=== PATIENT | female | born 1955 | race Caucasian/White ===

== ENCOUNTER 2018-07-19 08:31 | Observation (INO) | payer BC, OTHER ==
[2018-07-19] MEDS: GABAPENTIN 300 MG CAP PO ×2 (09:13→20:42)
[2018-07-19] MEDS: DEXAMETHASONE 1 MG TAB PO (09:14)
[2018-07-19] MEDS: TRANEXAMIC ACID 1GM/100ML(PMX) 100 ML IVPB (09:30)
[2018-07-19] MEDS: CEFAZOLIN 2 GM/50 ML (PMX) 50 ML IVPB (09:30)
[2018-07-19] MEDS ORDERED: SUCCINYLCHOLINE CHLORIDE 100 MG/5 ML SYG IV (10:55)
[2018-07-19] MEDS ORDERED: ROCURONIUM 50 MG INJ (10:55)
[2018-07-19] MEDS ORDERED: LIDOCAINE 2% (SDV) 5 ML INJ (10:55)
[2018-07-19] MEDS ORDERED: PROPOFOL 20 ML (10:55)
[2018-07-19] MEDS ORDERED: MIDAZOLAM 1 MG/ML 2 ML INJ (10:55)
[2018-07-19] MEDS ORDERED: DIPHENHYDRAMINE 50 MG INJ IV ×2 (11:00→12:00)
[2018-07-19] MEDS ORDERED: FENTAnyl 50 MCG/ML VIAL IV (11:00)
[2018-07-19] MEDS ORDERED: MEPERIDINE 25 MG INJ IV (11:00)
[2018-07-19] MEDS ORDERED: PROCHLORPERAZINE 10 MG INJ IV (11:00)
[2018-07-19] MEDS ORDERED: SEVOFLURANE 15 MIN (11:00)
[2018-07-19] MEDS: SOD CHLORIDE 0.9% 100 ML, TRANEXAMIC ACID 3,000 MG IRR (11:00)
[2018-07-19] MEDS ORDERED: HYDROmorphONE 1 MG/5 ML IV SYRINGE IV (11:00)
[2018-07-19] MEDS: TRANEXAMIC ACID 1GM/100ML(PMX) 100 ML (11:07)
[2018-07-19] MEDS ORDERED: FAMOTIDINE 20 MG INJ (11:18)
[2018-07-19] MEDS ORDERED: DEXAMETHASONE 4 MG/ML 5 ML INJ (11:18)
[2018-07-19] MEDS ORDERED: FENTAnyl 50 MCG/ML VIAL (11:18)
[2018-07-19] MEDS ORDERED: ONDANSETRON 4 MG INJ (11:18)
[2018-07-19] MEDS ORDERED: CEFAZOLIN 1 GM INJ (11:21)
[2018-07-19] MEDS: CA CHLORIDE 10% 10 ML SYRINGE (11:41)
[2018-07-19] MEDS: POLYMYXIN/BACITRACIN 1L IRRIG IRR (11:41)
[2018-07-19] MEDS: BUPIVACAINE 0.5% (SDV) 30 ML, morphine SULFATE (PF) 8 MG, EPINEPHrine 0.3 MG, KETOROLAC... IRR (11:41)
[2018-07-19] MEDS: THROMBIN 20,000 UNIT VIAL (11:41)
[2018-07-19] MEDS: LACTATED RINGER'S 1,000 ML IV ×4 (11:58→21:40)
[2018-07-19] MEDS ORDERED: oxyCODONE 5 MG TAB PO (12:00)
[2018-07-19] MEDS ORDERED: NACL 0.9% 3 ML SYG IV (12:00)
[2018-07-19] MEDS ORDERED: ZOLPIDEM 5 MG TAB PO (12:00)
[2018-07-19] MEDS ORDERED: MAGNESIUM HYDROXIDE 30ML CUP PO (12:00)
[2018-07-19] MEDS ORDERED: ONDANSETRON 4 MG INJ IV (12:00)
[2018-07-19] MEDS ORDERED: HYDROmorphONE 1 MG/ML SYG IV (12:00)
[2018-07-19] MEDS ORDERED: GLYCOPYRROLATE 0.4 MG INJ ×2 (12:06→12:07)
[2018-07-19] MEDS ORDERED: NEOSTIGMINE 3 MG/3 ML SYRINGE ×2 (12:06→12:07)
[2018-07-19] MEDS ORDERED: CEFAZOLIN 1 GM/50 ML (PMX) 50 ML IVPB (12:24)
[2018-07-19] MEDS: HYDROmorphONE 1 MG/5 ML IV SYRINGE IV ×3 (12:31→13:04)
[2018-07-19] MEDS: CEFAZOLIN 1 GM/50 ML (PMX) 50 ML IVPB ×2 (12:32→20:57)
[2018-07-19] MEDS: ONDANSETRON 4 MG INJ IV (12:32)
[2018-07-19] MEDS: DEXAMETHASONE 2 MG TAB PO ×3 (12:33→23:28)
[2018-07-19] MEDS: ACETAMINOPHEN 1000MG/100ML IV 100 ML IVPB ×2 (12:46→20:42)
[2018-07-19] MEDS: BENZTROPINE 1 MG TAB PO ×3 (13:00→20:42)
[2018-07-19] MEDS: [UNRECOGNIZED DRUG - OTHER] XX (14:30)
[2018-07-19] MEDS: [UNRECOGNIZED DRUG - OTHER] XX (14:30)
[2018-07-19] MEDS: metFORMIN (XR) 500 MG TAB PO (18:35)
[2018-07-19] MEDS: oxyCODONE 5 MG TAB PO (19:08)
[2018-07-19] MEDS: ASENAPINE SL (20:42)
[2018-07-19] MEDS: traZODone 100 MG TAB PO (20:42)
[2018-07-19] MEDS: SENNA/DOCUSATE NA (8.6MG/50MG) TAB PO (20:42)
[2018-07-19] MEDS: [UNRECOGNIZED DRUG - OTHER] PO (20:43)
[2018-07-19] MEDS ORDERED: metFORMIN (XR) 500 MG TAB PO (21:00)
[2018-07-19] MEDS ORDERED: THIOTHIXENE 5 MG CAP PO ×2 (21:00)
[2018-07-19] MEDS: ALPRAZOLAM 0.5 MG TAB PO (21:24)
[2018-07-20] MEDS: CEFAZOLIN 1 GM/50 ML (PMX) 50 ML IVPB (03:40)
[2018-07-20] MEDS: DEXAMETHASONE 2 MG TAB PO (05:03)
[2018-07-20] MEDS: ACETAMINOPHEN 1000MG/100ML IV 100 ML IVPB (05:03)
[2018-07-20] MEDS: oxyCODONE 5 MG TAB PO ×3 (05:46→14:12)
[2018-07-20] MEDS: DIAZEPAM 5 MG TAB PO (08:39)
[2018-07-20] MEDS: ASPIRIN (EC) 325 MG TAB PO (08:39)
[2018-07-20] MEDS: SENNA/DOCUSATE NA (8.6MG/50MG) TAB PO (08:40)
[2018-07-20] MEDS: BENZTROPINE 1 MG TAB PO ×2 (08:40→14:10)
[2018-07-20] MEDS: LACTATED RINGER'S 1,000 ML IV (08:41)
[2018-07-20] MEDS: metFORMIN (XR) 500 MG TAB PO (09:06)
[2018-07-20] MEDS: ALPRAZOLAM 1 MG TAB PO (10:17)
[2018-07-21] MEDS ORDERED: MAGNESIUM HYDROXIDE 30ML CUP PO (21:00)
== END 2018-07-20 14:50 | disposition home or self-care (01) ==
LOC: REC 08:31 → MS1 13:22
PROVIDERS: Orthopaedic Surgery
DX: S76.311A Strain of muscle, fascia and tendon of the posterior muscle group at thigh level, right thigh, initial encounter (principal); M70.61 Trochanteric bursitis, right hip; R73.03 Prediabetes; F32.9 Major depressive disorder, single episode, unspecified; X58.XXXA Exposure to other specified factors, initial encounter
CPT/HCPCS: 27062; 72170; 82962; 86999; 97116; 97161; 99217